=== PATIENT | male | born 1975 ===

== ENCOUNTER 2017-07-22 04:15 | Emergency (ER) | payer SELFPAY ==
[2017-07-22 04:20] VITALS: TEMP 98
[2017-07-22] MEDS ORDERED: Sodium Chloride 0.9% 1,000 ML IV ONE (04:27)
[2017-07-22] MEDS ORDERED: Sodium Chloride 0.9% 1,000 ML ONE (04:33)
[2017-07-22 04:37] LABS: EOS # 0.1 K/uL (0.0-0.7); EOS % 1.6 % (0.0-4.0); MONO # 0.6 K/uL (0.0-0.8)
[2017-07-22 04:52] LABS: BASO # 0.1 K/uL (0.0-0.2); BASO % 0.8 % (0.0-2.0); HEMOGLOBIN 17.1 g/dL (12.0-18.0); LYMPH % 32.2 % (20.0-40.0); MEAN CELL VOLUME 78.2 fL (80.0-94.0); MEAN CORPUSCULAR HEMOGLOBIN 27.1 pg (27.0-31.0); MEAN CORPUSCULAR HGB CONC 34.6 g/dL (33.0-37.0); MEAN PLATELET VOLUME 7.1 fL (7.2-11.7); MONO % 6.7 % (0.0-10.0); NEUT # 5.5 K/uL (1.8-7.0); NEUT % 58.7 % (50.0-75.0); NRBC % 0.1 % (0.0-2.0); RBC 6.32 Mil/uL (4.40-5.90); WHITE BLOOD COUNT 9.3 K/uL (4.8-10.8)
[2017-07-22 04:54] LABS: ALBUMIN 4.4 g/dL (3.5-5.0); ALT/SGPT 60 U/L (21-72); AST/SGOT 40 U/L (17-59); BLOOD UREA NITROGEN 16 mg/dL (9-20); CALCIUM 9.4 mg/dl (8.6-10.4); GFR AFRICAN-AMERICAN > 60; GFR NON-AFRICAN AMERICAN > 60; LIPASE 106 U/L (23-300)
[2017-07-22 05:21] LABS: ALB/GLOB RATIO 1.1 (1.0-2.1)
[2017-07-22 05:23] LABS: SQUAMOUS EPITHIAL < 1 /hpf (0-5); URINE BILIRUBIN NEGATIVE (NEGATIVE); URINE BLOOD 2+ (NEGATIVE); URINE CLARITY Clear (Clear); URINE COLOR Yellow (YELLOW); URINE GLUCOSE (UA) NORMAL (Normal); URINE LEUKOCYTE ESTERASE NEG Leu/uL (Negative); URINE NITRATE NEGATIVE (NEGATIVE); URINE PROTEIN NEGATIVE (NEGATIVE); URINE UROBILINOGEN NORMAL mg/dL (0.2-1.0)
--- NOTE | 2017-07-22 06:02 | CT ---
EXAM: CT Abdomen and Pelvis Without Intravenous Contrast EXAM DATE/TIME: 07/22/2017 4:55 AM CLINICAL HISTORY: 41 years old, male; Pain; Abdominal pain; Patient HX: Right abd pain; Additional info: Flank pain TECHNIQUE: Axial computed tomography images of the abdomen and pelvis without intravenous contrast. All CT scans at this facility use one or more dose reduction techniques, viz.: automated exposure control; ma/kV adjustment per patient size (including targeted exams where dose is matched to indication; i.e. head); or iterative reconstruction technique. Coronal and sagittal reformatted images were created and reviewed. COMPARISON: No relevant prior studies available. FINDINGS: The gallbladder is distended. No gallstones identified. The liver, spleen, and pancreas appear grossly normal on this non-contrast study. No perinephric stranding. No hydronephrosis. No obstructing calculi. The bowel appears grossly normal. A normal appendix is identified on coronal images 48 through 54. There is a very small right umbilical fat hernia. IMPRESSION: No acute findings.
[2017-07-22 06:03] VITALS: BP 143/98; PULSE 87; RESP 16
[2017-07-22 06:07] VITALS: O2SAT 98
[2017-07-22] MEDS ORDERED: Alum-Mag Hydrox-Simethicone Susp (30 mL) PO STA (06:07)
--- NOTE | 2017-07-22 06:07 | C.PDOC ---
History Of Present Illness <ClotildeBrianna tian - Last Filed: 07/22/17 06:13> <Iris Latifele - Last Filed: 07/22/17 06:41> 41 y/o male BIBEMS with c/o of generalized body pain x 2 days but now more localized to his lower chest, abdomen and back. Pt denies Cough, SOB, palpitation, N/V/D. No recent prolonged travel. Denies UTI symptoms. ON arrival to ER pt vomited once (Fernanda Latif) <Brianna Mabry - Last Filed: 07/22/17 06:13> History Per: Patient, EMS History/Exam Limitations: no limitations Current Symptoms Are (Timing): Still Present Severity: Moderate Pain Scale Rating Of: 10 Associated Symptoms: Nausea. denies: Dyspnea, Diaphoresis, Syncope Recent travel outside of the [place]: No <Fernanda Latif - Last Filed: 07/22/17 06:41> Time Seen by Provider: 07/22/17 04:22 Chief Complaint (Nursing): Chest Pain Past Medical History Reviewed: Historical Data, Nursing Documentation, Vital Signs - Medical History PMH: No Chronic Diseases Surgical History: No Surg Hx Family History: States: No Known Family Hx - Social History Hx Alcohol Use: No Hx Substance Use: No - Immunization History Hx Tetanus Toxoid Vaccination: No Hx Influenza Vaccination: No Hx Pneumococcal Vaccination: No <Fernanda Latif - Last Filed: 07/22/17 06:41> Vital Signs: Last Vital Signs Temp 98 F 07/22/17 06:02 Pulse 87 07/22/17 06:02 Resp 16 07/22/17 06:02 BP 143/98 H 07/22/17 06:02 Pulse Ox 98 07/22/17 06:25 Review Of Systems Cardiovascular: Positive for: Chest Pain (lower chest). Negative for: Palpitations Respiratory: Negative for: Cough, Shortness of Breath Gastrointestinal: Positive for: Abdominal Pain. Negative for: Nausea, Vomiting , Diarrhea Musculoskeletal: Positive for: Back Pain, Other (generalized body pain) <Fernanda Latif - Last Filed: 07/22/17 06:41> Physical Exam - Physical Exam Appears: Well, Non-toxic, No Acute Distress Eye(s): bilateral: Normal Inspection Oral Mucosa: Moist Chest: Symmetrical, No Tenderness Cardiovascular: Rhythm Regular, No Murmur Respiratory: Normal Breath Sounds, No Rales, No Rhonchi, No Wheezing Gastrointestinal/Abdominal: Soft, Tenderness (diffuse), No Distention, No Guarding, No Rebound Back: No CVA Tenderness, No Vertebral Tenderness, Paraspinal Tenderness (diffuse ), No Straight Leg Raising Male Genital: No Testicular Tenderness Neurological/Psych: Oriented x3 Gait: Steady <Fernanda Latif - Last Filed: 07/22/17 06:41> ED Course And Treatment - Laboratory Results Result Diagrams: 07/22/17 04:32 07/22/17 04:32 <Brianna Mabry Last Filed: 07/22/17 06:13> - Laboratory Results Result Diagrams: 07/22/17 04:32 07/22/17 04:32 O2 Sat by Pulse Oximetry: 98 (room air) Pulse Ox Interpretation: Normal Progress Note: EKG ordered. Maalox, Pepcid, Toradol, Zofran, and IV fluids administered. Reevaluation Time: 06:22 Reassessment Condition: Improved (Pt is sleeping comfortably on stretcher in no acute painful distress. Pt is stable for d/c. Lab and CT results d/w pt who is advised PMD follow up and return precautions were also discussed) <Fernanda Latif - Last Filed: 07/22/17 06:41> Disposition <Brianna Mabry - Last Filed: 07/22/17 06:13> Counseled Patient/Family Regarding: Diagnosis, Need For Followup - Disposition Disposition Time: 06:28 <Fernanda Latif - Last Filed: 07/22/17 06:41> - Disposition Referrals: [facility] [Outside] Disposition: HOME/ ROUTINE Condition: STABLE Additional Instructions: Take pain meds as directed Take all meds prescribed Return to ER if worse Prescriptions: Famotidine [Pepcid] 20 mg PO DAILY #20 tab Ondansetron ODT [Zofran ODT] 1 odt PO BID PRN #6 odt PRN Reason: Nausea/Vomiting traMADol [Ultram] 50 mg PO TID #14 tab Instructions: Abdominal Pain (ED) Forms: [facility] (Yoruba) Print Language: ESTONIAN - Clinical Impression Clinical Impression: Abdominal pain <Brianna Mabry - Last Filed: 07/22/17 06:13> - Scribe Statement The provider has reviewed the documentation as recorded by the Scribe <Fernanda Latif - Last Filed: 07/22/17 06:41> - Scribe Statement Yuki Samayoa All medical record entries made by the Scribe were at my direction and personally dictated by me. I have reviewed the chart and agree that the record accurately reflects my personal performance of the history, physical exam, medical decision making, and the department course for this patient. I have also personally directed, reviewed, and agree with the discharge instructions and disposition. (Fernanda Latif)
[2017-07-22] MEDS ORDERED: Aluminum Hydroxide/Magnesium Hydroxide Susp (30 mL) ONE (06:12)
--- NOTE | 2017-07-26 19:54 | CARD ---
APPROVED REPORT EKG Measurement Heart [id number] <Conclusion> Normal sinus rhythm with sinus arrhythmia Minimal voltage criteria for LVH, may be normal variant Borderline ECG
== END 2017-07-22 06:45 | disposition home or self-care (01) ==
LOC: C.ER 04:15
DX: R10.9 Unspecified abdominal pain (principal)
CPT/HCPCS: 74176; 80053; 81001; 83690; 84484; 85025; 96374; 96375; 99285; J1885; J2405; J7040

== ENCOUNTER 2017-07-27 01:03 | Emergency (ER) | payer SELFPAY ==
--- NOTE | 2017-07-27 01:30 | C.PDOC ---
Time Seen by Provider: 07/27/17 01:29 Chief Complaint (Nursing): Abdominal Pain History Per: Patient History/Exam Limitations: no limitations Onset/Duration Of Symptoms: Hrs Current Symptoms Are (Timing): Still Present Context: Other Severity: Moderate Pain Scale Rating Of: 4 Location Of Pain/Discomfort: Diffuse Radiation Of Pain To:: None Quality Of Discomfort: Sharp, Cramping Associated Symptoms: denies: Fever Exacerbating Factors: None Alleviating Factors: None Last Bowel Movement: Yesterday Recent travel outside of the [place]: No Additional History Per: Patient Past Medical History Reviewed: Historical Data, Nursing Documentation, Vital Signs Vital Signs: Last Vital Signs Temp 97.4 F L 07/27/17 05:18 Pulse 58 L 07/27/17 05:18 Resp 22 07/27/17 05:18 BP 128/82 07/27/17 05:18 Pulse Ox 100 07/27/17 05:18 Family History: States: No Known Family Hx - Social History Hx Alcohol Use: No Hx Substance Use: Yes - Immunization History Hx Tetanus Toxoid Vaccination: No Hx Influenza Vaccination: No Hx Pneumococcal Vaccination: No Review Of Systems Constitutional: Positive for: Fever Eyes: Negative for: Redness ENT: Negative for: Throat Pain Cardiovascular: Negative for: Chest Pain Respiratory: Negative for: Shortness of Breath Gastrointestinal: Positive for: Abdominal Pain. Negative for: Nausea, Vomiting , Constipation Genitourinary: Negative for: Dysuria Musculoskeletal: Negative for: Back Pain Skin: Negative for: Rash Neurological: Negative for: Weakness Psych: Positive for: Anxiety Physical Exam - Physical Exam Appears: Non-toxic Skin: Warm, Dry Head: Normacephalic Eye(s): bilateral: Normal Inspection Oral Mucosa: Moist Neck: Supple Chest: Symmetrical Cardiovascular: Rhythm Regular Respiratory: No Rales, No Rhonchi, No Wheezing Gastrointestinal/Abdominal: Soft, Tenderness (ruq), No Distention, No Guarding Back: No CVA Tenderness Extremity: Normal ROM Extremity: Bilateral: Atraumatic Pulses: Left Dorsalis Pedis: Normal, Right Dorsalis Pedis: Normal Neurological/Psych: Oriented x3 Gait: Steady ED Course And Treatment - Laboratory Results Result Diagrams: 07/27/17 01:45 07/27/17 01:45 O2 Sat by Pulse Oximetry: 98 Pulse Ox Interpretation: Normal - Radiology CXR: Interpreted by Me, Viewed By Me CXR Interpretation: No: Infiltrates, Fracture, Pnemothorax - Other Rad obstr X-Ray: Interpreted by Me, Viewed By Me Interpretation: no obstruction, free air Disposition Counseled Patient/Family Regarding: Studies Performed, Diagnosis, Need For Followup, Rx Given - Disposition Referrals: [facility] [Outside] [facility] [Outside] Disposition: HOME/ ROUTINE Disposition Time: 01:30 Condition: FAIR Prescriptions: Dicyclomine [Dicyclomine HCl] 10 mg PO QID #20 cap Polyethylene Glycol 3350 [Miralax] 17 gm PO DAILY #270 ml Instructions: Abdominal Pain (ED), Gas and Bloating (ED), Polysubstance Abuse ( ED) Forms: [employer] (Gibraltarian) - Clinical Impression Clinical Impression: Abdominal pain, Polysubstance abuse
[2017-07-27 01:42] LABS: BASO # 0.1 K/uL (0.0-0.2); BASO % 0.6 % (0.0-2.0); EOS # 0.1 K/uL (0.0-0.7); EOS % 0.8 % (0.0-4.0); HEMOGLOBIN 15.6 g/dL (12.0-18.0); LYMPH # 2.5 K/uL (1.0-4.3); LYMPH % 15.8 % (20.0-40.0); MEAN CELL VOLUME 79.3 fL (80.0-94.0); MEAN CORPUSCULAR HEMOGLOBIN 26.7 pg (27.0-31.0); MEAN CORPUSCULAR HGB CONC 33.6 g/dL (33.0-37.0); MONO # 0.9 K/uL (0.0-0.8); MONO % 5.5 % (0.0-10.0); NEUT # 12.1 K/uL (1.8-7.0); NEUT % 77.3 % (50.0-75.0); NRBC % 0.1 % (0.0-2.0); RBC 5.83 Mil/uL (4.40-5.90); RED CELL DISTRIBUTION WIDTH 15.8 % (11.5-14.5); WHITE BLOOD COUNT 15.6 K/uL (4.8-10.8)
[2017-07-27 01:50] LABS: PROTHROMBIN TIME 11.6 SECONDS (9.7-12.2)
[2017-07-27 02:26] LABS: URINE BILIRUBIN NEGATIVE (NEGATIVE); URINE BLOOD 2+ (NEGATIVE); URINE CLARITY Clear (Clear); URINE COLOR Yellow (YELLOW); URINE GLUCOSE (UA) NORMAL (Normal); URINE LEUKOCYTE ESTERASE NEG Leu/uL (Negative); URINE NITRATE NEGATIVE (NEGATIVE); URINE PROTEIN NEGATIVE (NEGATIVE)
[2017-07-27 02:40] LABS: BENZODIAZEPINES, UR NEGATIVE (NEGATIVE); OPIATES, UR NEGATIVE (NEGATIVE); PHENCYCLIDINE, UR NEGATIVE (NEGATIVE)
[2017-07-27 02:42] LABS: BARBITURATES, UR POSITIVE (NEGATIVE)
[2017-07-27 03:13] LABS: ALB/GLOB RATIO 1.1 (1.0-2.1); ALBUMIN 4.1 g/dL (3.5-5.0); ALT/SGPT 32 U/L (21-72); AST/SGOT 19 U/L (17-59); BLOOD UREA NITROGEN 13 mg/dL (9-20); CALCIUM 8.8 mg/dl (8.6-10.4); GFR AFRICAN-AMERICAN > 60; GFR NON-AFRICAN AMERICAN > 60; LIPASE 68 U/L (23-300)
[2017-07-27 05:19] VITALS: BP 128/82; PULSE 58; RESP 22; TEMP 97.4
[2017-07-27] MEDS ORDERED: Acetaminophen IV 1,000 MG in Premixed IV 1 EA IV ONE (05:20)
[2017-07-27 05:57] VITALS: O2SAT 98
--- NOTE | 2017-07-27 11:41 | RAD ---
PROCEDURE: Radiographs of the chest and abdomen (obstructive series) HISTORY: pain COMPARISON: No prior. TECHNIQUE: AP radiograph of the chest, with upright and supine radiographs of the abdomen. FINDINGS: CHEST: Lungs: Clear. Cardiovascular: Normal size heart. No pulmonary vascular congestion. Pleura: No pleural fluid. No pneumothorax. Other findings: None. ABDOMEN AND PELVIS: Bowel: Unremarkable bowel gas pattern. No evidence of mechanical obstruction. Free air: None. Bones: Unremarkable. Other findings: None. IMPRESSION: Unremarkable radiographs of chest and abdomen. No evidence of mechanical bowel obstruction.
== END 2017-07-27 06:34 | disposition home or self-care (01) ==
LOC: C.ER 01:03
DX: R10.9 Unspecified abdominal pain (principal); F19.10 Other psychoactive substance abuse, uncomplicated
CPT/HCPCS: 74022; 80053; 81001; 83690; 85025; 85610; 85730; 96374; 96375; 99285; G0480; J0131; J1885; J2405

== ENCOUNTER 2017-07-29 16:16 | Emergency (ER) | payer OTHER ==
[2017-07-29 16:30] VITALS: BP 109/81; PULSE 109; RESP 18; TEMP 98.3; O2SAT 98
[2017-07-29] MEDS ORDERED: Naproxen 550 mg Tab PO STA (17:03)
[2017-07-29] MEDS ORDERED: Naproxen 550 mg Tab PO ONE (17:07)
--- NOTE | 2017-07-29 17:12 | C.PDOC ---
History Of Present Illness 41 year old male presents to ED for evaluation of right foot pain since last night. Notes having right foot surgery in the past with metal plate placed. Pt states that he usually follows up with his PMD for pain management but was unable to follow up today, and is requesting pain medications. Denies injury, trauma, change in sensation, skin changes, or fever. Time Seen by Provider: 07/29/17 16:32 Chief Complaint (Nursing): Lower Extremity Problem/Injury History Per: Patient History/Exam Limitations: no limitations Onset/Duration Of Symptoms: Days Current Symptoms Are (Timing): Still Present Recent travel outside of the [place]: No Additional History Per: Patient Past Medical History Reviewed: Historical Data, Nursing Documentation, Vital Signs Vital Signs: Last Vital Signs Temp 98.3 F 07/29/17 16:25 Pulse 109 H 07/29/17 16:25 Resp 18 07/29/17 16:25 BP 109/81 07/29/17 16:25 Pulse Ox 98 07/29/17 17:26 Family History: States: Unknown Family Hx - Social History Hx Alcohol Use: No Hx Substance Use: Yes - Immunization History Hx Tetanus Toxoid Vaccination: No Hx Influenza Vaccination: No Hx Pneumococcal Vaccination: No Review Of Systems Except As Marked, All Systems Reviewed And Found Negative. Constitutional: Negative for: Fever, Chills Musculoskeletal: Positive for: Foot Pain (right) Skin: Negative for: Rash, Bruising Neurological: Negative for: Weakness, Numbness Physical Exam - Physical Exam Appears: Non-toxic, No Acute Distress Skin: Normal Color, Warm, Dry, No Ecchymosis, Other (healed surgical scar to dorsal and distal aspect of right foot, no erythema or warmth) Head: Atraumatic, Normacephalic Eye(s): bilateral: Normal Inspection Extremity: Normal ROM (FROM of right foot), No Tenderness, No Calf Tenderness, Capillary Refill (less than 2 seconds), No Deformity, No Swelling Extremity: Bilateral: Normal Color And Temperature, Normal ROM Pulses: Left Dorsalis Pedis: Normal, Right Dorsalis Pedis: Normal Neurological/Psych: Oriented x3, Normal Speech, Normal Motor, Normal Sensation Gait: Steady ED Course And Treatment O2 Sat by Pulse Oximetry: 98 (RA) Pulse Ox Interpretation: Normal Progress Note: Pt was given Naproxen. On reassessment, patient is resting comfortably, and is in no acute distress. Patient was instructed to follow up with PMD/clinic in 1-2 days for further evaluation. Disposition Counseled Patient/Family Regarding: Diagnosis, Need For Followup, Rx Given - Disposition Referrals: PMD, PMD [Other] Disposition: HOME/ ROUTINE Disposition Time: 17:10 Condition: STABLE Additional Instructions: Please follow up with PMD on tuesday Take meds as directed Return to ER if worse Prescriptions: Naproxen [Naprosyn] 1 tab PO BID PRN #25 tab PRN Reason: Pain Instructions: Arthralgia (ED) Forms: Accompanied To ED By:, [employer] (Eritrean) - Clinical Impression Clinical Impression: Right foot pain - PA / STONER OUT / Resident Statement MD/DO has reviewed & agrees with the documentation as recorded. - Scribe Statement The provider has reviewed the documentation as recorded by the Scribe Adalberto Cochran All medical record entries made by the Salinasibariadna were at my direction and personally dictated by me. I have reviewed the chart and agree that the record accurately reflects my personal performance of the history, physical exam, medical decision making, and the department course for this patient. I have also personally directed, reviewed, and agree with the discharge instructions and disposition.
== END 2017-07-29 17:51 | disposition home or self-care (01) ==
LOC: C.ER 16:16
DX: M79.671 Pain in right foot (principal)

== ENCOUNTER 2017-09-26 11:01 | Emergency (ER) | payer OTHER ==
[2017-09-26] MEDS ORDERED: Sodium Chloride 0.9% 1,000 ML IV ONE (12:29)
[2017-09-26] MEDS ORDERED: Sodium Chloride 0.9% 1,000 ML ONE (12:57)
[2017-09-26 12:58] LABS: BASO # 0.1 K/uL (0.0-0.2); BASO % 0.7 % (0.0-2.0); EOS # 0.1 K/uL (0.0-0.7); EOS % 0.6 % (0.0-4.0); HEMOGLOBIN 15.4 g/dL (12.0-18.0); LYMPH # 1.3 K/uL (1.0-4.3); LYMPH % 12.6 % (20.0-40.0); MEAN CELL VOLUME 79.1 fL (80.0-94.0); MEAN CORPUSCULAR HGB CONC 34.1 g/dL (33.0-37.0); MEAN PLATELET VOLUME 7.3 fL (7.2-11.7); MONO # 0.4 K/uL (0.0-0.8); MONO % 4.1 % (0.0-10.0); NEUT # 8.6 K/uL (1.8-7.0); RBC 5.7 Mil/uL (4.40-5.90); RED CELL DISTRIBUTION WIDTH 15.7 % (11.5-14.5); WHITE BLOOD COUNT 10.5 K/uL (4.8-10.8)
[2017-09-26 13:13] LABS: ALB/GLOB RATIO 1.1 (1.0-2.1); ALBUMIN 3.8 g/dL (3.5-5.0); ALT/SGPT 87 U/L (21-72); AST/SGOT 208 U/L (17-59); BLOOD UREA NITROGEN 17 mg/dL (9-20); CALCIUM 9.2 mg/dl (8.6-10.4); GFR AFRICAN-AMERICAN > 60; GFR NON-AFRICAN AMERICAN > 60; LIPASE 79 U/L (23-300)
--- NOTE | 2017-09-26 13:18 | RAD ---
HISTORY: epigastric/chest pain COMPARISON: Chest x-ray portion of obstructive series performed 07/27/17 TECHNIQUE: Chest, one view. FINDINGS: Examination limited by habitus. LUNGS: No focal consolidation. Please note that chest x-ray has limited sensitivity for the detection of pulmonary masses. PLEURA: No significant pleural effusion identified. No definite pneumothorax . CARDIOVASCULAR: The cardiomediastinal silhouette appears within normal limits of size. OSSEOUS STRUCTURES: No acute osseous abnormality identified. VISUALIZED UPPER ABDOMEN: Unremarkable. OTHER FINDINGS: None. IMPRESSION: No focal consolidation identified.
[2017-09-26 15:28] LABS: SQUAMOUS EPITHIAL 2 /hpf (0-5); URINE BILIRUBIN NEGATIVE (NEGATIVE); URINE BLOOD 2+ (NEGATIVE); URINE CLARITY Hazy (Clear); URINE COLOR Amber (YELLOW); URINE GLUCOSE (UA) NORMAL (Normal); URINE LEUKOCYTE ESTERASE NEG Leu/uL (Negative); URINE NITRATE NEGATIVE (NEGATIVE); URINE PROTEIN NEGATIVE (NEGATIVE)
[2017-09-26 16:08] LABS: BARBITURATES, UR NEGATIVE (NEGATIVE); OPIATES, UR NEGATIVE (NEGATIVE); PHENCYCLIDINE, UR NEGATIVE (NEGATIVE)
[2017-09-26 16:18] LABS: BENZODIAZEPINES, UR POSITIVE (NEGATIVE)
--- NOTE | 2017-09-26 16:45 | C.PDOC ---
History Of Present Illness 41 y/o male presents to ED with complaints of epigastric abdominal pain radiating to chest for 1 day with associated nausea. Patient was seen 07/22 for same symptoms and got medication which improved symptoms. At ED patient denies vomiting, diarrhea, sob, fever, cough or any other complaints at this time. Time Seen by Provider: 09/26/17 11:29 Chief Complaint (Nursing): Chest Pain History Per: Patient History/Exam Limitations: no limitations Onset/Duration Of Symptoms: Days Current Symptoms Are (Timing): Still Present Past Medical History Reviewed: Historical Data, Nursing Documentation, Vital Signs Vital Signs: Last Vital Signs Temp 97.6 F 09/26/17 16:55 Pulse 70 09/26/17 16:55 Resp 18 09/26/17 16:55 BP 110/60 09/26/17 16:55 Pulse Ox 99 09/26/17 16:55 - Medical History PMH: No Chronic Diseases Surgical History: No Surg Hx Family History: States: No Known Family Hx - Social History Hx Alcohol Use: Yes Hx Substance Use: Yes - Immunization History Hx Tetanus Toxoid Vaccination: No Hx Influenza Vaccination: No Hx Pneumococcal Vaccination: No Review Of Systems Except As Marked, All Systems Reviewed And Found Negative. Gastrointestinal: Positive for: Nausea, Abdominal Pain Physical Exam - Physical Exam Appears: Non-toxic, Other (Uncomfortable) Skin: Warm, Dry, No Rash Head: Atraumatic, Normacephalic Eye(s): bilateral: Normal Inspection Oral Mucosa: Moist Neck: Normal ROM, Supple Cardiovascular: Rhythm Regular Respiratory: Normal Breath Sounds, No Rales, No Rhonchi, No Wheezing Gastrointestinal/Abdominal: Soft, Tenderness (Mild epigastric), No Guarding, No Rebound Back: No CVA Tenderness Extremity: Normal ROM, Capillary Refill (<2 seconds) Neurological/Psych: Oriented x3 ED Course And Treatment - Laboratory Results Result Diagrams: 09/26/17 12:55 09/26/17 12:55 ECG: Interpreted By Me, Viewed By Me ECG Rhythm: Sinus Bradycardia Rate From EC (BPM) O2 Sat by Pulse Oximetry: 97 (RA) Progress Note: Blood work, EKG ordered. IV fluids and Protonix administered Disposition Counseled Patient/Family Regarding: Studies Performed, Diagnosis, Need For Followup, Rx Given - Disposition Referrals: Parviz Choi MD [Staff Provider] - Disposition: HOME/ ROUTINE Disposition Time: 16:40 Condition: STABLE Additional Instructions: FOLLOW UP WITH GI SPECIALIST WITHIN 1 WEEK USE MEDICATION DAILY RETURN TO ER IF SYMPTOMS WORSEN Prescriptions: Pantoprazole [Protonix EC Tab] 20 mg PO DAILY #30 ect Instructions: Dyspepsia Forms: [employer] (Swedish) Print Language: TELUGU - Clinical Impression Clinical Impression: Epigastric abdominal pain - Scribe Statement The provider has reviewed the documentation as recorded by the Salinasibariadna Michaud All medical record entries made by the Salinasibariadna were at my direction and personally dictated by me. I have reviewed the chart and agree that the record accurately reflects my personal performance of the history, physical exam, medical decision making, and the department course for this patient. I have also personally directed, reviewed, and agree with the discharge instructions and disposition.
[2017-09-26 16:56] VITALS: BP 110/60; PULSE 70; RESP 18; TEMP 97.6
[2017-09-26 17:51] VITALS: O2SAT 97
--- NOTE | 2017-09-26 22:48 | CARD ---
APPROVED REPORT EKG Measurement Heart [id number] <Conclusion> Sinus bradycardia Otherwise normal ECG
== END 2017-09-26 16:56 | disposition home or self-care (01) ==
LOC: C.ER 11:01
DX: R10.13 Epigastric pain (principal)
CPT/HCPCS: 71045; 80053; 80324; 80345; 80346; 80349; 80353; 80358; 80361; 81001; 82948; 83690; 83992; 84484; 85025; 93005; 96361; 96374; 99284; C9113; J7040